=== PATIENT | female | born 1985 | race Caucasian/White ===

== ENCOUNTER 2022-10-27 02:11 | Day surgery (SDC) | payer OTHER, SELFPAY ==
[2022-10-13 14:36] VITALS: BMI 20.1
--- NOTE | 2022-10-13 14:40 | PC.NURSE ---
Report to the Outpatient Waiting Room, entrance under the green pavilion located off [facility], at time 0900 on date 10/27/22. Planned Procedure Time: 1100. Time changes happen often and if your time is changed the preop area will call you the afternoon before. - You and your visitor will be asked to self-screen and do not enter if you have any COVID symptoms. - Only one visitor is requested with a max of two and NO children visitors are allowed at this time. - The patient visitor may be requested to leave or wait in car when not with patient due to distancing restrictions. - A mask is REQUIRED within the hospital. Patients may have clear liquids (water, carbonated beverages, clear teas, apple juice) until 3 hours prior to surgery with a maximum of 20 ounces. - No food from midnight until time of surgery Take the following medications with a SIP of water the morning of surgery: N/A Medications to discontinue per physician: N/A Date to take last dose: N/A Please no make-up, nail hungarian, hairspray, perfume, deodorant, or body powder the day of surgery. No jewelry (including any body piercings) or valuables the day of surgery, leave them at home. Please take a shower or bath the night before, or the morning of, surgery with an antibacterial soap. Wear comfortable, loose fitting clothing. - Jewelry must be removed prior to entering the operating room. Rings and piercings that are not removed may be cut off. - The hospital will not accept responsibility for valuables. - Please leave all valuables, including medications, at home the day of surgery. If you are going home after surgery, a licensed commercial driver's license driver must drive you home. - NO public transportation without another adult if you receive anesthesia. - We recommend that an adult stay with you for 24 hours following discharge. - We also recommend that you do not drive, make important decision, drink alcoholic beverages, or take any drugs that were not prescribed by your health care provider for at least 24 hours after your discharge time. Follow any additional instructions given to you from your surgeon. If you or anyone in your household have experienced Covid symptoms in the past week, please notify your surgeon or the nurse liaison at the phone number below for possible testing. Telephone instructions given to PT - JERRY PEREZ and asked if any additional questions and then verbalized understanding. Patient advised to call surgeon office or pre surgery nurse liaison [phone] if any additional questions.
[2022-10-27] VITALS (11 sets, daily range): BP systolic 98–133; BP diastolic 60–79; PULSE 55–84; RESP 12–16; TEMP 36.2–36.8; O2SAT 96–100
[2022-10-27] MEDS: LACTATED RINGERS 1,000 ML 30 ML IV CONT ×3 (09:30→15:02)
[2022-10-27] MEDS: SCOPOLAMINE 1.5 MG PATCH TRANSDERM (10:12)
--- NOTE | 2022-10-27 10:15 | WPDHPUPDATE1 ---
History and Physical Update Update Date/Time: 10/27/22 10:15 History and Physical has been reviewed, including an updated exam of the patient. There are NO changes in the patient's condition. Risks, benefits, and alternatives have been discussed and questions answered. Patient agrees to proceed with procedure.
--- NOTE | 2022-10-27 10:15 | W.PM.PROC2 ---
Procedure Note - Detailed Date of Procedure 10/27/22 Pre-op Diagnosis skin laxity Post-op Diagnosis Same Procedure Performed Progressive tension abdominoplasty with suction lipectomy Surgeon Will Garcia MD Anesthesia General Findings Tissue removed: 611.3 grams Lipoaspirate: 1100 cc Description of Procedure They are here today for abdominoplasty. Previously and again today the risks, benefits, alternatives were discussed in extensive detail. I wanted them to be very realistic about the risks involved as well as expectations. We discussed aftercare and what to monitor for. I was very upfront about the risks of wound breakdown leading to loss of skin, open wounds, and need for additional procedures with permanent abdominal deformity. We discussed DVT/PE risks and management. Made sure answered all of their questions to their satisfaction today and consent was obtained. They were marked in the preoperative holding area with their verification. The patient was taken to the operating room placed supine on the operating table. Anesthesia was provided by anesthesiology. A Buitrago catheter was started. They were prepped and draped in a standard sterile fashion. A surgical time-out was taken. I placed the patient in a flexed position to verify the upper and lower markings would reach. I then placed supine. A thorough abdominal examination was completed. Stab incisions were made and tumescent solution infiltrated. Once adequate time was allowed for hemostasis a 5mm basket cannula was utilized to complete suction lipectomy based on S.A.F.E. technique in multiple planes and passes. There were turned to bilateral lateral decubitus position with care taken to protect them for injury during this process. Suction lipectomy continued to result based on pre-operative planning, intra-operative observation, and rolling pinch test which were in full agreement. A 10 blade was used to make the upper incision. I continued dissection down to the level of fascia. Elevated just what was necessary for repair of the diastasis. I then again flexed the bed to verify the upper skin flap would reach the lower markings without tension. Once verified I placed her supine once again and a 10 blade used to make the lower incision. I elevated up to level the umbilicus and left the umbilicus intact on a well-vascularized stalk. The intervening tissue was removed. A 2 mm blunt cannula with 0.5% bupivicaine was injected deep to the fascia bilaterally. I plicated the diastasis recti using 0 PDO stratafix barbed suture. This was in 2 separate layers using 2 separate sutures as well. I repaired around the umbilicus leaving plenty of room for well-vascularized stalk of the umbilicus with 2-0 PDS. I also repaired lateral to the rectus using two layers of 0 PDO stratafix. The patient was flexed and starting from superior to inferior began plication using 2-0 Vicryl to obliterate all space in a standard progressive tension fashion. At the umbilicus I marked out the location of the skin and inset this with 3-0 Monocryl and 4-0 Vicryl. I continued the remainder of the plication using 2-0 Vicryl until I reached my lower planned scar line. I trimmed any excess skin of the upper flap making sure this was a tension-free closure. I then approximated using a 3 point suture with 2-0 Vicryl followed by 3-0 stratafix ,running subcuticular 4-0 Monocryl, and tissue glue. Fluffs and an abdominal binder were placed. The patient was transferred to the bed in a flexed position. Awoken and taken to the PACU without difficulty. All instrument and sponge counts were correct at the end of the case. Estimated Blood Loss 50 Drains No Packing No Pathology None sent Complications No immediate complications Condition Stable Disposition PACU
[2022-10-27 10:17] LABS: Urine Cotinine NEGATIVE
--- NOTE | 2022-10-27 10:28 | WPDANESEPPF ---
Anes - Initial Pre Proc Eval Procedure: Operation Date: 10/27/22 11:00 Proposed Procedures p Abdominoplasty, - Will Garcia MD s Liposuction of Abdomen - Will Garcia MD Date/Time: 10/27/22 10:28 Surgeon: Will Garcia MD Pre Op Diagnosis: skin laxity Patient Data Age: 37 Gender: F Height: 1.68 m Weight: 64.4 kg Last Vital Signs Temp 36.7 C 10/27/22 10:07 Pulse 78 10/27/22 10:07 Resp 14 10/27/22 10:07 BP 133/77 10/27/22 10:07 Pulse Ox 100 10/27/22 10:07 O2 Del Method Room Air 10/27/22 10:07 Allergies Allergy/AdvReac Type Severity Reaction Status Date / Time No Known Allergies Allergy Verified 10/27/22 10:16 Home Medications Medication Instructions Recorded Confirmed Type No Home Medications 12/12/21 10/13/22 History Laboratory Tests 10/27/22 09:33 Cotinine Negative Patient hx anesthesia problems: none Family hx anesthesia problems: none Results Review: All pre-operative results and documents have been reviewed as part of the pre-operative evaluation. [facility] Surgical History Surgical History (Updated 10/27/22 @ 10:28 by John Gillette MD) H/O cardiac radiofrequency ablation Family History Family History Father Cerebrovascular accident Social History Social History Smoking status: Never smoker Alcohol intake: current Drinks per week: 2 Substance use: never Substance use type: does not use Living arrangements: with family Spiritual care concerns: No Anes - Eval Final PreProcedure Day of Procedure 10/27/22 10:28 Patient weight: normal Heart: regular rate and rhythm Lungs: clear to auscultation Airway: Mallampati scale class 1 Neurological: alert and oriented Last oral intake: >/= 8 hours ASA classification: I Emergent: no Anesthetic plan: proceed Anesthesia type and monitoring: general ETT and standard monitoring Results Review: All pre-operative results and documents have been reviewed as part of the pre-operative evaluation. Informed Consent: The patient's anesthetic plan and its attendant risks and benefits were discussed with the patient/family/POA. Questions were solicited and answers provided to the satisfaction of the patient/family/POA.
[2022-10-27] MEDS: TRANEXAMIC ACID 1,000MG/ISO100 1,000 MG/100 ML BAG 200 MG IVPB (10:42)
[2022-10-27] MEDS: ceFAZolin 2 GM/D5W 50 ML 2 GM/50 ML BAG IVPB (10:42)
[2022-10-27] MEDS: BUPIVACAINE/EPINEPHRINE 0.5% 30 ML VIAL INFILTRATE (11:26)
[2022-10-27] MEDS: LIDOCAINE HCL 1% PF 30 ML VIAL INFILTRATE (11:26)
[2022-10-27] MEDS: LACTATED RINGERS IRRIG 1,000 ML, LIDOCAINE HCL 1% LOCAL INJ 50 ML, EPINEPHrine HCL INJ ... INFILTRATE (13:18)
[2022-10-27] MEDS: ONDANSETRON INJ 4 MG/2 ML VIAL IV PUSH (14:41)
[2022-10-27] MEDS: fentaNYL CITRATE INJ (*CRX) 100 MCG/2 ML VIAL 25 MCG IV PUSH ×4 (15:05→16:00)
--- NOTE | 2022-10-27 15:46 | SUR.PHASEI ---
1545: RN tried to call report to floor RN and she has to call back.
--- NOTE | 2022-10-27 16:30 | PC.NURSE ---
This patient, Karolyn Romero, was received from PACU via bed on 10/27/22 at 1630. Patient/family oriented to unit policies and routines
[2022-10-27] MEDS: GABAPENTIN 300 MG CAPSULE PO (17:12)
[2022-10-27] MEDS: LACTATED RINGERS 1,000 ML 125 ML IV CONT (17:12)
[2022-10-27] MEDS: KETOROLAC 15 MG/ML VIAL (*BKC) IV PUSH (17:13)
[2022-10-27] MEDS: carisoprodoL (*CRX) 350 MG TABLET PO (18:20)
[2022-10-27] MEDS: DOCUSATE SODIUM 100 MG CAPSULE PO (20:57)
[2022-10-27] MEDS: ENOXAPARIN 40 MG/0.4 ML SYRINGE SUB-Q (20:58)
[2022-10-28] MEDS: KETOROLAC 15 MG/ML VIAL (*BKC) IV PUSH (00:22)
[2022-10-28] MEDS: carisoprodoL (*CRX) 350 MG TABLET PO ×2 (00:22→06:53)
[2022-10-28 00:27] VITALS: BP 108/71; PULSE 66; RESP 16; TEMP 36.6; O2SAT 95
[2022-10-28 04:34] VITALS: BP 104/67; PULSE 74; RESP 16; TEMP 36.9; O2SAT 98
[2022-10-28 06:50] VITALS: BP 102/70; PULSE 83; RESP 18; TEMP 36.8; O2SAT 100
[2022-10-28] MEDS: oxyCODONE/ACETAMINOPHEN (*CRX) 5-325 MG TABLET PO (07:17)
--- NOTE | 2022-10-28 08:10 | WPDPN ---
Progress Note: A&P Assessment and Plan (1) Skin laxity: Code(s): L57.4 - Cutis laxa senilis Status: Acute Assessment and Plan: Doing well after progressive tension abdominoplasty and suction lipectomy. Will plan for discharge home. Today we had a lengthy discussion with her family about the care. Activity limitations. What monitor for. What is an emergency and when to proceed to the ER/ dial 911. This was a lengthy open-ended conversation making sure answered all of their questions and they were able to voice a clear understanding. I will see her back. Call with any questions or concerns in the meantime. Subjective Date/time seen: 10/28/22 08:10 Interval history: Overall doing well after progressive tension abdominoplasty with suction lipectomy. Some difficulty with urination postoperatively. Otherwise doing well. No fevers or chills. No nausea vomiting. No shortness of breath. No chest pain. No calf tenderness. Pain controlled. Review of Systems Review of Systems: All systems reviewed & are unremarkable except as noted in HPI and below Exam Narrative: Alert and oriented no obvious distress Respiratory on labored Abdomen soft. No signs of infection. No hematoma. No seroma. Good color and capillary refill. No calf tenderness. Negative Homans. Objective Data Vital Signs Vital Signs: Vital Signs - 24 hr 10/27/22 10:07 10/27/22 14:25 10/27/22 14:40 Temperature 36.7 C 36.4 C Pulse Rate 78 84 80 Respiratory Rate 14 14 12 Blood Pressure 133/77 104/64 109/65 Pulse Oximetry 100 100 100 Oxygen Delivery Room Air Simple Face Mask Simple Face Mask Oxygen Flow Rate 8 8 10/27/22 14:55 10/27/22 15:10 10/27/22 15:25 Temperature Pulse Rate 58 L 58 L 55 L Respiratory Rate 13 15 12 Blood Pressure 112/75 111/78 110/79 Pulse Oximetry 100 100 97 Oxygen Delivery Simple Face Mask Room Air Room Air Oxygen Flow Rate 8 10/27/22 15:40 10/27/22 15:55 10/27/22 16:10 Temperature 36.6 C Pulse Rate 55 L 63 62 Respiratory Rate 12 12 12 Blood Pressure 111/78 113/79 110/76 Pulse Oximetry 99 100 96 Oxygen Delivery Room Air Room Air Room Air Oxygen Flow Rate 10/27/22 16:45 10/27/22 16:45 10/27/22 20:15 Temperature 36.2 C L Pulse Rate 59 L 75 Respiratory Rate 16 16 Blood Pressure 123/67 Pulse Oximetry 98 97 Oxygen Delivery Room Air Room Air Oxygen Flow Rate 10/27/22 20:15 10/28/22 00:27 10/28/22 00:27 Temperature 36.8 C 36.6 C Pulse Rate 75 66 66 Respiratory Rate 16 16 16 Blood Pressure 98/60 L 108/71 Pulse Oximetry 97 95 95 Oxygen Delivery Room Air Oxygen Flow Rate 10/28/22 04:34 10/28/22 04:34 10/28/22 06:50 Temperature 36.9 C Pulse Rate 74 74 Respiratory Rate 16 16 Blood Pressure 104/67 Pulse Oximetry 98 98 Oxygen Delivery Room Air Room Air Oxygen Flow Rate 10/28/22 06:50 Temperature 36.8 C Pulse Rate 83 Respiratory Rate 18 Blood Pressure 102/70 Pulse Oximetry 100 Oxygen Delivery Oxygen Flow Rate Intake/Output Intake/Output: Intake & Output 10/25/22 10/26/22 10/27/22 10/28/22 23:59 23:59 23:59 23:59 Intake Total 1800 650 Output Total 110 3050 Balance 1690 -2400 Meds/Results Medications: Active Medications Generic Name Dose Route Start Last Admin Trade Name Freq PRN Reason Stop Dose Admin Carisoprodol 350 mg 10/27/22 18:00 10/28/22 06:53 Carisoprodol (*Crx) 350 Mg Tablet PO 350 mg Q6HR EMELY Administration Diazepam 5 mg 10/27/22 14:14 Diazepam (*Crx) 5 Mg Tablet PO TID PRN Anxiety Docusate Sodium 100 mg 10/27/22 21:00 10/27/22 20:57 Docusate Sodium 100 Mg Capsule PO 100 mg Q12HR EMELY Administration Enoxaparin Sodium 40 mg 10/27/22 20:00 10/27/22 20:58 Enoxaparin 40 Mg/0.4 Ml Syringe SUB-Q 40 mg DAILY EMELY Administration Gabapentin 300 mg 10/27/22 17:00 10/27/22 17:12 Gabapentin 300 Mg Capsule PO 300 mg TID EMELY Adminis
--- NOTE | 2022-10-28 08:13 | P.DS_ITS ---
DS: Admitting Diagnosis Discharge Date 10/28/2022 Admitting Diagnosis Skin laxity Localized adiposity DS: Discharge Diagnosis Discharge Diagnosis (1) Skin laxity: Code(s): L57.4 - Cutis laxa senilis Status: Acute (2) Localized adiposity: Code(s): E65 - Localized adiposity Status: Acute DS: Summary Hospital Course Hospital Course: Underwent progressive tension abdominoplasty with suction lipectomy. Postoperatively has done well. Will plan for discharge home once voiding, pain controlled, ambulating, tolerating PO. Time spent discussing smoking cessation with patient: more than 10 minutes Time Spent with Patient Time attestation: Total time spent providing and/or coordinating discharge services: Exam Narrative: Alert and oriented no obvious distress Respiratory on labored Abdomen soft. No signs of infection. No hematoma. No seroma. Good color and capillary refill. No calf tenderness. Negative Homans. DS: Data Data Completed and Pending Labs on day of discharge: Labs from last 24 hours 10/27/22 09:33 Cotinine Negative Discharge Plan Discharge Patient Disposition: Home, Self-Care Discharge Instructions: POST OPERATIVE DISCHARGE INSTRUCTIONS WILL GARCIA M.D[facility] PLASTIC SURGERY [facility] [place] [address] * No driving for 24 hours after anesthesia and while you are taking pain medication. * Take all prescribed medication as directed * Diet as tolerated. * No lifting or activity that raises blood pressure for 48 hours. * Regular walking / ambulation. * May shower 24 hours after surgery. Once you shower do not take pain medication before showering as the combination of medication and heat may cause you to feel dizzy or pass out. * No pools or tubs for 2 weeks. * Slowly stand up straight as tolerated. * No straining or lifting more than 20 pounds. * If no bowel movement within 24 hours may use laxative. * Call with any questions or concerns. * Dressing Care: Continue abdominal binder / foam 23 hours per day. If you have any questions or concerns, please call the office . If it is after hours you will be directed to the siebel solution architect exchange. Shortness of breath, chest pain, or other medical emergency dial 911 / proceed to the Emergency Room. Stand Alone Forms: General Discharge Instructions Follow-up/Referrals: Will Garcia MD [Physician] - 1 Week Discharge Medications: No Action No Home Medications
[2022-10-28] MEDS: ENOXAPARIN 40 MG/0.4 ML SYRINGE SUB-Q (09:37)
[2022-10-28] MEDS: GABAPENTIN 300 MG CAPSULE PO (09:37)
[2022-10-28] MEDS: DOCUSATE SODIUM 100 MG CAPSULE PO (09:37)
== END 2022-10-28 10:30 | disposition home or self-care (01) ==
LOC: ANHSURGERY 10:16 → ANHOB2 16:24
PROVIDERS: PCP Pediatrics; Visit Provider Surgery Plastic and Reconstructive Surgery
PROC: (CPT 15830; principal; 2022-10-27 11:00)
PROC: (CPT 15877; 2022-10-27 11:00)
DX: Z41.1 Encounter for cosmetic surgery (principal); L57.4 Cutis laxa senilis; E65 Localized adiposity; F10.90 Alcohol use, unspecified, uncomplicated; Z79.899 Other long term (current) drug therapy
CPT/HCPCS: 15830; 15847; 15877; 80307; 99199; A9270; J0171; J0330; J0690; J1100; J1170; J1650; J1885; J2250; J2370; J2405; J2704; J2710; J3010; J7120